=== PATIENT | male | born 1930 | race Two or more races ===

== ENCOUNTER 2018-08-09 14:26 | Emergency (ER) | payer OTHER ==
[~2018-08-09] VITALS: Ht 180.3 cm; Wt 59.0 kg
--- NOTE | 2018-08-09 15:04 | Emergency Room Report ---
History of Present Illness General Chief Complaint: Altered Level of Consciousness Source: Medical Record, EMS Present Illness HPI Patient presents by paramedics from nursing facility with reports of change in mental status The timing of the change in mental status is unclear There is a note in triage regarding nursing staff reporting the patient is at baseline mental status however family felt there was some change Unknown regarding vomiting or diarrhea unknown regarding oral intake History of present illness is significantly limited as the patient is not able to provide history for us Allergies: Coded Allergies: No Known Allergies (Unverified , 08/09/18) Patient History Limited by: medical condition Past Medical History: see triage record Pertinent Family History: unable to obtain Reviewed Nursing Documentation: PMH: Agreed; PSxH: Agreed Review of Systems All Other Systems: limited - Other than the ones mentioned in the history of present illness all others are reviewed however they do stay limited due to the patient's mental status Physical Exam Vital Signs Date Time Temp Pulse Resp B/P (MAP) Pulse Ox O2 Delivery O2 Flow Rate FiO2 08/09/18 14:18 97.5 80 20 132/76 97 Non-Rebreather [id number] EP Interpretation: reviewed, normal General Appearance: thin - Patient looking around the room appears confused does not follow command Head: normocephalic, atraumatic Eyes: bilateral eye PERRL, bilateral eye EOMI ENT: dry mucus membranes Neck: supple Respiratory: lungs clear, normal breath sounds, no respiratory distress, no retraction Cardiovascular #1: regular rate, rhythm, no edema Gastrointestinal: non tender, soft Musculoskeletal: other - Patient does not follow commands, moves both upper extremities without focal deficit Neurologic: responsive - To physical stimuli, has eyes open moaning Skin: normal color, no rash Lymphatic: no adenopathy Medical Decision Making Diagnostic Impression: Primary Impression: Renal failure Additional Impression: Hyperkalemia ER Course Multiple differentials considered patient had extensive blood work and imaging started Family also has arrived and reports the patient has had decreased oral intake for the past several days Appears to be more lethargic and less responsive patient's blood work shows severe findings including blood work consistent with renal failure Duggan catheter is placed and there has been no output as of yet patient has further aggressive hydration Also evidence of UTI and further antibiotics are provided Patient requiring transfer secondary to insurance purposes and request Labs Test 08/09/18 15:11 08/09/18 15:45 08/09/18 16:10 White Blood Count 11.0 K/UL (4.8-10.8) Red Blood Count 4.42 M/UL (4.70-6.10) Hemoglobin 12.9 G/DL (14.2-18.0) Hematocrit 39.0 % (42.0-52.0) Mean Corpuscular Volume 88 FL (80-99) Mean Corpuscular Hemoglobin 29.2 PG (27.0-31.0) Mean Corpuscular Hemoglobin Concent 33.1 G/DL (32.0-36.0) Red Cell Distribution Width 11.8 % (11.6-14.8) Platelet Count 397 K/UL (150-450) Mean Platelet Volume 6.8 FL (6.5-10.1) Neutrophils (%) (Auto) % (45.0-75.0) Lymphocytes (%) (Auto) % (20.0-45.0) Monocytes (%) (Auto) % (1.0-10.0) Eosinophils (%) (Auto) % (0.0-3.0) Basophils (%) (Auto) % (0.0-2.0) Differential Total Cells Counted 100 Neutrophils % (Manual) 74 % (45-75) Lymphocytes % (Manual) 7 % (20-45) Monocytes % (Manual) 4 % (1-10) Eosinophils % (Manual) 0 % (0-3) Basophils % (Manual) 0 % (0-2) Band Neutrophils 15 % (0-8) Platelet Estimate Adequate Platelet Morphology Normal Red Blood Cell Morphology Normal Sodium Level 144 MMOL/L (136-145) Potassium Level 6.4 MMOL/L (3.5-5.1) Chloride Level 105 MMOL/L (98-107) Carbon Dioxide Level 17 MMOL/L (21-32) Anion Gap 21 mmol/L (5-15) Blood Urea Nitrogen 218 mg/dL (7-18) Creatinine 12.7 MG/DL (0.55-1.30) Estimat Glomerular Filtration Rate mL/min (>60) Glucose Level 168 MG/DL (74-106) Lactic Acid Level 3.70 mmol/L (0.4-2.0) 1.50 mmol/L (0.66-2.22) Calcium Level 9.3 MG/DL (8.5-10.1) Total Bilirubin 0.4 MG/DL (0.2-1.0) Aspartate Amino Transf (AST/SGOT) 33 U/L (15-37) Alanine Aminotransferase (ALT/SGPT) 34 U/L (12-78) Alkaline Phosphatase 123 U/L (46-116) Total Creatine Kinase 118 U/L (26-308) Creatine Kinase MB 2.5 NG/ML (0.0-3.6) Creatine Kinase MB Relative Index 2.1 Troponin I 0.008 ng/mL (0.000-0.056) Total Protein 8.9 G/DL (6.4-8.2) Albumin 2.6 G/DL (3.4-5.0) Globulin 6.3 g/dL Albumin/Globulin Ratio 0.4 (1.0-2.7) Lipase 44 U/L (73-393) Urine Color Red Urine Appearance Slightly cloudy Urine pH 7 (4.5-8.0) Urine Specific [place] 1.010 (1.005-1.035) Urine Protein 4+ (NEGATIVE) Urine Glucose (UA) 1+ (NEGATIVE) Urine Ketones 1+ (NEGATIVE) Urine Blood 5+ (NEGATIVE) Urine Nitrite Negative (NEGATIVE) Urine Bilirubin Negative (NEGATIVE) Urine Urobilinogen Normal MG/DL (0.0-1.0) Urine Leukocyte Esterase 3+ (NEGATIVE) Urine RBC Tntc /HPF (0 - 0) Urine WBC 10-15 /HPF (0 - 0) Urine Squamous Epithelial Cells None /LPF (NONE/OCC) Urine Bacteria Moderate /HPF (NONE) EKG Diagnostic Results Rate: normal Rhythm: NSR ST Segments: other - Nonspecific ST and T-wave changes Rhythm Strip Diag. Results EP Interpretation: yes Rate: 66 Rhythm: NSR, no PVC's, no ectopy Chest X-Ray Diagnostic Results Chest X-Ray Diagnostic Results : Chest X-Ray Ordered: Yes # of Views/Limited/Complete: 1 View Indication: Chest Pain EP Interpretation: Yes Interpretation: no consolidation, no effusion, no pneumothorax Impression: No acute disease Electronically Signed by: Shahbaz Baumann DO Last Vital Signs Date Time Temp Pulse Resp B/P (MAP) Pulse Ox O2 Delivery O2 Flow Rate FiO2 08/09/18 14:18 97.5 80 20 132/76 97 Non-Rebreather Status: improved Disposition: XFER SHT-TRM HOSP Condition: Serious Shahbaz Baumann DO Aug 09, 2018 15:04
[2018-08-09 15:34] LABS: HEMOGLOBIN 12.9 G/DL (14.2-18.0); MEAN CORPUSCULAR VOLUME 88 FL (80-99); PLATELET COUNT 397 K/UL (150-450); RED BLOOD COUNT 4.42 M/UL (4.70-6.10); RED CELL DISTRIBUTION WIDTH 11.8 % (11.6-14.8)
--- NOTE | 2018-08-09 15:53 | Diagnostic Imaging Report ---
Indication: Chest pain Technique: One view of the chest Comparison: none Findings: There is mild central interstitial prominence and bronchial wall thickening, suspect on the basis of senescent changes. No definite acute infiltrates, effusions, or congestion. Normal heart size. Impression: No acute process
[2018-08-09 15:57] LABS: ALANINE AMINOTRANSFERASE 34 U/L (12-78); ALBUMIN 2.6 G/DL (3.4-5.0); ALBUMIN/GLOBULIN RATIO 0.4 (1.0-2.7); ALKALINE PHOSPHATASE 123 U/L (46-116); ANION GAP 21 mmol/L (5-15); ASPARTATE AMINO TRANSFERASE 33 U/L (15-37); BILIRUBIN,TOTAL 0.4 MG/DL (0.2-1.0); BLOOD UREA NITROGEN 218 mg/dL (7-18); CALCIUM 9.3 MG/DL (8.5-10.1); CARBON DIOXIDE 17 MMOL/L (21-32); CHLORIDE 105 MMOL/L (98-107); CKMB 2.5 NG/ML (0.0-3.6); CREATINE KINASE 118 U/L (26-308); CREATININE 12.7 MG/DL (0.55-1.30); SODIUM 144 MMOL/L (136-145)
[2018-08-09 15:58] VITALS: BP 104/78
[2018-08-09 15:58] LABS: POTASSIUM 6.4 MMOL/L (3.5-5.1)
[2018-08-09 16:17] LABS: APPEARANCE,URINE SLIGHTLY CLOUDY; BILIRUBIN, URINE NEGATIVE (NEGATIVE); GLUCOSE, URINE (UA) 1+ (NEGATIVE); KETONES,URINE 1+ (NEGATIVE); LEUKOCYTE ESTERASE ,URINE 3+ (NEGATIVE); NITRITE,URINE NEGATIVE (NEGATIVE); PH,URINE 7 (4.5-8.0); PROTEIN,URINE 4+ (NEGATIVE); UROBILINOGEN,URINE NORMAL MG/DL (0.0-1.0)
[2018-08-09 16:22] LABS: COLOR,URINE RED
[2018-08-09] MEDS ORDERED: cefTRIAXone 1 GM in NS 55 ML IVPB ONE (17:00)
[2018-08-09 17:30] VITALS: BP 128/51
[2018-08-09 18:11] VITALS: BP 129/75
[2018-08-09 19:18] VITALS: BP 129/75
--- NOTE | 2018-08-11 11:55 | Cardiology Report ---
APPROVED REPORT EKG Measurement Heart [id number] Sinus rhythm with 1st degree AV block Septal infarct, age undetermined Abnormal ECG
== END 2018-08-09 19:28 | disposition short-term general hospital (02) ==
LOC: EMR 15:01
DX: N19 Unspecified kidney failure (principal); E87.5 Hyperkalemia; E11.9 Type 2 diabetes mellitus without complications; R07.9 Chest pain, unspecified
CPT/HCPCS: 36415; 71045; 80053; 81003; 82550; 82553; 83605; 83690; 84484; 85007; 85025; 87040; 87086; 93005; 96361; 96365; 99285; J0696